=== PATIENT | male | born 1990 | race Caucasian/White ===

== ENCOUNTER 2019-03-14 16:02 | Emergency (ER) | payer OTHER ==
[~2019-03-14] VITALS: Ht 180.3 cm; Wt 103.4 kg
[2019-03-14 16:13] VITALS: BP 129/79; Ht 180.3 cm; Wt 103.4 kg
== END 2019-03-14 18:00 | disposition home or self-care (01) ==
LOC: ED 16:02
DX: S93.602A Unspecified sprain of left foot, initial encounter (principal); W20.8XXA Other cause of strike by thrown, projected or falling object, initial encounter; Y93.89 Activity, other specified; Y92.89 Other specified places as the place of occurrence of the external cause; Y99.8 Other external cause status